=== PATIENT | female | born 1955 | race Caucasian/White ===

== ENCOUNTER → 2017-10-19 08:13 | Outpatient (CLI) | payer OTHER, SELFPAY | PROVIDERS: Visit Provider Nurse Practitioner Women's Health | DX: Z12.31 Encounter for screening mammogram for malignant neoplasm of breast (principal) | CPT/HCPCS: 77063; 77067 ==

== ENCOUNTER → 2017-10-19 19:01 | Outpatient (CLI) | payer OTHER, SELFPAY ==
[2017-10-26 08:12] LABS: HPV APTIMA, High Risk Negative (Negative)
== END ==
PROVIDERS: Visit Provider Nurse Practitioner Women's Health
DX: Z12.4 Encounter for screening for malignant neoplasm of cervix (principal)
CPT/HCPCS: 88175; G0145

== ENCOUNTER → 2018-10-26 | Outpatient (CLI) | payer MEDICARE, SELFPAY ==
--- NOTE | 2018-10-26 07:56 | BI_ITS ---
MAMMOGRAPHY - BILATERAL SCREENING REASON FOR EXAM: Female, 63 years old. Routine annual screening examination. PERTINENT HISTORY: Non-contributory. TECHNIQUE: Digital bilateral breast abram (3D mammographic acquisition) in the CC and MLO projections. 2-D mediolateral oblique (MLO) and craniocaudad (CC) views of both breasts were obtained. CAD: Full Field Digital Mammography with Computer Added Detection was performed. COMPARISON: Comparison is made with prior examination October 19, 2017. FINDINGS: Breast Composition: The breasts are almost entirely fatty. There are no dominant masses or suspicious calcifications. Stable appearance of the small bilateral axillary lymph nodes. No other significant abnormalities are identified. There has been no significant change since the prior study. BI/SCREEN MAMM (CAD) W/ABRAM BILAT IMPRESSION: Stable bilateral screening mammogram. Yearly follow-up mammogram recommended. (A) ASSESSMENT CATEGORY: BIRADS Category 2: Benign. A letter regarding these results will be sent to the patient by the facility within 30 days. Approximately 10% of breast cancers are not detected by mammography. A normal mammogram should not delay biopsy of a clinically suspicious abnormality. [id number] Electronically Signed: Ulises Moore, at 10:25 EDT , Service support ,
== END | disposition home or self-care (01) ==
LOC: OPBI 07:55
PROVIDERS: Referring Provider Nurse Practitioner Women's Health; Visit Provider Nurse Practitioner Women's Health
DX: Z12.31 Encounter for screening mammogram for malignant neoplasm of breast (principal)
CPT/HCPCS: 77063; 77067

== ENCOUNTER → 2020-01-03 08:02 | Outpatient (CLI) | payer MEDICARE, SELFPAY ==
[2018-10-26 08:32] VITALS: BMI 34.5
--- NOTE | 2020-01-03 08:04 | BI_ITS ---
MAMMOGRAPHY - BILATERAL SCREENING REASON FOR EXAM: Female, 64 years old. Routine annual screening examination. PERTINENT HISTORY: Non-contributory. TECHNIQUE: Digital bilateral breast abram (3D mammographic acquisition) in the CC and MLO projections. 2-D mediolateral oblique (MLO) and craniocaudad (CC) views of both breasts were obtained. CAD: Full Field Digital Mammography with Computer Added Detection was performed. COMPARISON: Comparison is made with prior study dated 10/26/2018 and 10/19/2017. FINDINGS: Breast Composition: There are scattered areas of fibroglandular density. There are no dominant masses or suspicious calcifications. No other significant abnormalities are identified. There has been no significant change since the prior study. BI/SCREEN MAMM (CAD) W/ABRAM BILAT IMPRESSION: Stable bilateral screening mammogram. Yearly follow-up mammogram recommended. (A) ASSESSMENT CATEGORY: BIRADS Category 1: Negative. A letter regarding these results will be sent to the patient by the facility within 30 days. Approximately 10% of breast cancers are not detected by mammography. A normal mammogram should not delay biopsy of a clinically suspicious abnormality. [id number] Electronically Signed: Ulises Moore, at 9:48 EST , Service support ,
== END ==
DX: Z12.31 Encounter for screening mammogram for malignant neoplasm of breast (principal)
CPT/HCPCS: 77063; 77067

== ENCOUNTER 2021-02-28 08:36 | Outpatient (CLI) | payer MEDICARE, SELFPAY ==
--- NOTE | 2021-02-28 08:39 | BI_ITS ---
MAMMOGRAPHY - BILATERAL SCREENING REASON FOR EXAM: Female, 65 years old. Routine annual screening examination. PERTINENT HISTORY: Non-contributory. TECHNIQUE: Digital bilateral breast abram (3D mammographic acquisition) in the CC and MLO projections. 2-D mediolateral oblique (MLO) and craniocaudad (CC) views of both breasts were obtained. CAD: Full Field Digital Mammography with Computer Added Detection was performed. COMPARISON: Comparison is made with prior study of 01/03/2020 and 10/26/2018. FINDINGS: Breast Composition: There are scattered areas of fibroglandular density. There are no dominant masses or suspicious calcifications. No other significant abnormalities are identified. There has been no significant change since the prior study. BI/SCRN MAMM (CAD)W/ABRAM BILAT IMPRESSION: Stable bilateral screening mammogram. Yearly follow-up mammogram recommended. (A) ASSESSMENT CATEGORY: BIRADS Category 1: Negative. A letter regarding these results will be sent to the patient by the facility within 30 days. Approximately 10% of breast cancers are not detected by mammography. A normal mammogram should not delay biopsy of a clinically suspicious abnormality. [id number] Electronically Signed: Ulises Moore MD at 9:21 EST , Service support ,
== END 2021-02-28 23:59 | disposition short-term general hospital (02) ==
LOC: OPBI 08:37
DX: Z12.31 Encounter for screening mammogram for malignant neoplasm of breast (principal)
CPT/HCPCS: 77063; 77067

== ENCOUNTER → 2022-03-25 | Outpatient (CLI) | payer MEDICARE, SELFPAY ==
--- NOTE | 2022-03-25 11:34 | BI_ITS ---
MAMMOGRAPHY - BILATERAL SCREENING REASON FOR EXAM: Female, 66 years old. Routine annual screening examination. PERTINENT HISTORY: Sister with breast cancer. TECHNIQUE: Digital bilateral breast abram (3D mammographic acquisition) in the CC and MLO projections. 2-D mediolateral oblique (MLO) and craniocaudad (CC) views of both breasts were obtained. CAD: Full Field Digital Mammography with Computer Added Detection was performed. COMPARISON: Comparison is made with prior examination dated 02/28/2021 and 01/03/2020. FINDINGS: Breast Composition: There are scattered areas of fibroglandular density. There are no dominant masses or suspicious calcifications. No other significant abnormalities are identified. There has been no significant change since the prior study. BI/SCRN MAMM (CAD)W/ABRAM BILAT IMPRESSION: Stable bilateral screening mammogram. Yearly follow-up mammogram recommended. (A) ASSESSMENT CATEGORY: BIRADS Category 1: Negative. A letter regarding these results will be sent to the patient by the facility within 30 days. Approximately 10% of breast cancers are not detected by mammography. A normal mammogram should not delay biopsy of a clinically suspicious abnormality. [id number] Electronically Signed: Ulises Moore MD at 12:29 EST ,
--- NOTE | 2022-03-25 11:36 | BD_ITS ---
STUDY: DUAL ENERGY X-RAY ABSORPTIOMETRY / DXA REASON FOR EXAM: Female, 66 years old. 627.8Menopausal postmenopausalBONE DENSITY REASON FOR EXAM TECHNIQUE: Bone Mineral Density (BMD) measurements of lumbar spine and bilateral hips were obtained. COMPARISON: None. FINDINGS: Lumbar Spine (L1-L4): g/cm2 (0.957) / T-score (-0.8) / Z-score (1.2) Findings are suggestive of normal bone density with a low fracture risk. Left Femur Total: g/cm2 (0.954) / T-score (0.1) / Z-score (1.5) Left Femoral Neck: g/cm2 (0.766) / T-score (-0.7) / Z-score (1.0) Right Femur Total: g/cm2 (0.969) / T-score (0.2) / Z-score (1.6) Right Femoral Neck: g/cm2 (0.811) / T-score (-0.3) / Z-score (1.4) BD/Dexa Bone Density Study IMPRESSION: The patient is considered normal as outlined below according to World [employer] Organization (WHO) criteria with a low fracture risk. Reference Information: The T-score is the number of standard deviations above or below the standard which is normal for young adults at their peak bone mineral density. The World Health Organization (WHO) interprets the T-scores as follows: Above -1 Normal bone density Between -1 and -2.5 Osteopenia Equal to / or below -2.5 Osteoporosis As a practical clinical guideline, osteopenia may be graded as follows: Mild -1 through -1.5 Moderate -1.6 through -2.0 Severe -2.1 through -2.4 The Z-score is the number of standard deviations above or below age-matched controls. A Z-score of less than -1.5 would be considered abnormal. References: 1. NIH Osteoporosis and Related Bone Diseases www osteo.org 2. International Society for Clinical Densitometry www iscd.org 3. National Osteoporosis Foundation www nof.org Electronically Signed: Ulises Moore MD at 9:37 EST ,
== END | disposition home or self-care (01) ==
LOC: OPBD 11:30
DX: Z12.31 Encounter for screening mammogram for malignant neoplasm of breast (principal); Z80.3 Family history of malignant neoplasm of breast; Z78.0 Asymptomatic menopausal state
CPT/HCPCS: 77063; 77067; 77080

== ENCOUNTER 2022-10-30 09:01 | Day surgery (SDC) | payer MEDICARE, SELFPAY ==
[2022-10-30] VITALS (7 sets, daily range): BP systolic 96–164; BP diastolic 64–94; PULSE 53–66; RESP 16; TEMP 36.5–36.8; O2SAT 93–99; BMI 35.6
--- NOTE | 2022-10-30 | GASB_PTH ---
PATIENT: SHYAM MENJIVAR LOC: EN U#:[id number] AGE/SX: 67/F ROOM: RE10/30/[address]: Dr. Abdias Liu MD : 1955 BED: DIS: 10/30/2022 SPEC #: [id number] RECD: 10/30/22 12:52 STATUS: BHARGAV BRADLEY #: [id number] VIANNEY: 10/30/22 00:[address]: Abdias Liu DEPT: SURGICAL PATHOLOGY RECD BY: Elías Gutierrez ENTERED: 10/30/22 12:52 SP TYPE: Gastric Bx OTHR DR: Dr. Sheila Paz DO Tissues: Gastric mucous membrane Procedures: Special Stain Group II Surgery Specimen Level IV Alcian Blue/PAS (control) HEADER OPERATION: EGD, biopsy PRE-OP DIAGNOSIS: Hiatal hernia TISSUE SUBMITTED: Gastroesophageal junction biopsy MICROSCOPIC DIAGNOSIS Gastroesophageal junction, biopsy: Chronic inflammation. Focal changes of reflux. No evidence of goblet cell metaplasia. See comment. AM:usha 11/02/2022 COMMENT Alcian blue/PAS stain with matched control supports the above diagnosis. MICROSCOPIC DESCRIPTION Slides are reviewed. GROSS DESCRIPTION Received in fixative is one container labeled with the patient's name and designated GE junction biopsy. The specimen consists of two irregular fragments of light valadez soft tissue that in aggregate measure 0.5 x 0.3 x 0.1 cm. The specimen is totally submitted in one cassette. / SJ:usha 10/30/2022 TC:3 CPT: 51925, 47059
[2022-10-30] MEDS: Lactated Ringers 1,000 ML 15 ML IV (09:42)
--- NOTE | 2022-10-30 10:12 | HP.PCM_ITS ---
History and Physical Date of Admission: 10/30/22 Intake Vital Signs 10/15/2308:51 Height 5 ft 5 in Weight: 216 lb 6 oz BMI 36.0 BP 146/98 H Blood Pressure Location Rt brachial Position Sitting Respiration 16 Pulse 63 Pulse Source Monitor Temp 97.3 F L Temp Source Tympanic Pulse Oximetry (%) 98 Intake Visit Reasons: HIATAL HERNIA Chief Complaint: HIATAL HERNIA Allergies Lyoenoc-FVH-TbB Reductase Inhibitor Adverse Reaction (Mild, Verified 10/15/22 09:53) Other Medications levothyroxine 100 mcg tablet (Synthroid) 100 mcg PO DAILY 10/19/17 [History Confirmed 10/15/22] metoprolol succinate 50 mg capsule sprinkle, ext. release 24 hr mg PO 10/19/17 [History Confirmed 10/15/22] valsartan 160 mg-hydrochlorothiazide 12.5 mg tablet 1 tab PO DAILY 10/19/17 [History Confirmed 10/15/22] rosuvastatin 5 mg tablet 5 mg PO DAILY 10/26/18 [History Confirmed 10/15/22] [facility] Medical History (Updated 10/15/22 @ 10:[address] Abdias Liu MD) Hyperlipidemia Hypertension Hypothyroidism Surgical History radiation of thyroid S/P tubal ligation Family History Father Throat cancer Heart disease Social History current occupational status: retired Smoking Status: Former smoker how long ago did patient quit smokin years alcohol intake: current alcohol intake frequency: holidays/special occasions only substance use type: does not use caffeine: Yes Type: coffee Number of servings: 1 seatbelt use: always do you feel safe at home: Yes additional social history: [employer] Retired HPI HPI HPI: Patient is a 67-year-old female with epigastric pain. She reports she has acid reflux and has been on PPI for years. She says that if she eats large meal she has extreme pain in the epigastric region that happens about 20 minutes after eating. If she small meal she is okay. She also reports that if she bends over she has nausea and pain. She has a known hiatal hernia. ROS General General: Yes weight change and fatigue; No appetite, colon cancer, breast cancer or weakness HEENT HEENT: No difficulty swallowing, eye injury, eye surgery, swollen glands or hoarseness Endo Endocrine: No thyroid disease, diabetes mellitus, thyroid cancer, Hair loss, heat intolerance or cold intolerance Skin Skin: Yes rash; No changing moles Breast Breast: No left breast lump, right breast lump, nipple discharge, breast pain, abnormal mammogram, abnormal US or breast enlargement Musc Musculoskeletal: Yes back problems and arthritis; No rheumatoid arthritis, gout or joint pain Cardio Cardiovascular: Yes high blood pressure; No murmur, pacemaker, heart disease, atrial fibrillation, heart attack, heart stent, palpitations, shortness of breat with exertion or chest pain Psych Psychiatric: No depression, anxiety or hearing voices Resp Respiratory: Yes shortness of breath, No sleep apnea, No cough, No COPD, No asthma, No emphysema and No wheezing Gastro Gastrointestinal: Yes abdominal pain, Yes nausea or vomiting, No diarrhea, No constipation, No blood in stool, Yes acid reflux, Yes hemorrhoids, No ulcers, No gallbladder problem and No black,tarry stools Yan Hematologic: No blood thinners, No blood disorders, No bleeding, No anemia and No blood clots Neuro Neurologic: No system reviewed and no additional complaints, except as documented, No as per HPI, No abnormal gait, No abnormal hearing, No abnormal movements, No abnormal speech, No behavioral changes, No burning sensations, No confusion, No convulsions, No disequilibrium, No dizziness, No localized weakness, No frequent falls, No headache(s), No lack of coordination, No loss of vision, No memory loss, No numbness, No other visual disturbances, No radicular pain, No restless legs, No sensory deficit, No syncope, No tingling, No tremor(s), No weakness and No other Exam Const General: cooperative Orientation: alert and oriented x3 HENMT Head: normal to inspection Neck Neck: normal visual inspection and full ROM Chest Chest palpation & inspection: normal inspection of the chest Resp Effort & Inspection: normal respiratory effort Auscultation: clear to auscultation bilaterally Cardio Rate: regular rate Rhythm: regular rhythm GI Inspection: non-distended Palpation: soft and nontender Skin General: no rashes or lesions noted Neuro General: patient alert and patient oriented x3 Extrem General: full ROM Psych Appearance: grossly normal Mental Status: mental status grossly normal Assessment and Plan Assessment and Plan (1) Hiatal hernia: Status: Acute Plan: Patient has a known hiatal hernia and she has been having epigastric pain and nausea. I discussed hiatal hernia repair with her and at this time she would l roma to avoid surgery but she is willing to consent for EGD. I explained endoscopy in detail to the patient. I explained the risks including but not limited to stroke or heart attack with anesthesia, perforation of the GI tract, bleeding, infection. I explained that any of these could necessitate further emergency surgery. The patient understands and all questions were answered sufficiently. The patient wishes to proceed with procedure. I will evaluate her hiatal hernia and if she decides to have hiatal hernia repair in the future I can order manometry and discuss it with her again. Abdias Liu MD Pager: [facility] [address] [place] [address], [address] [place] [address] Office: I have examined the patient and the H&P has been reviewed. There are no clinical changes since date of exam.
--- NOTE | 2022-10-30 10:29 | OP.CCLET_ITS ---
10/30/2022 Sheila Paz Re : Upper GI endoscopy procedure for Azeem Carrillo Dear Brandi This procedure was performed on Sunday, October 30, 2022. My impressions and recommendations are as follows: Impressions : - Reflux esophagitis with no bleeding. Biopsied. - Normal stomach. - Normal examined duodenum. Recommendations : - Discharge patient to home. - Resume previous diet. - Continue present medications. - Await pathology results. My findings are described in the full procedure note, which is enclosed. If I can be of further assistance, please feel free to contact me at Doctor phone number(s): , Work: . Sincerely, Abdias Liu MD 10/30/2022 10:29:08 AM This report has been signed electronically.
--- NOTE | 2022-10-30 10:29 | OP.EGD_ITS ---
Patient Name: Azeem Carrillo Procedure Date: 10/30/2022 10:18 AM Date of : 1955 Age: 67 Procedure: Upper GI endoscopy Indications: Esophageal reflux Providers: Abdias Liu MD Referring MD: Sheila Paz Medicines: Monitored Anesthesia Care Patient Profile: This is a 67 year old female. Refer to note in patient chart for documentation of history and physical. Complications: No immediate complications. Estimated blood loss: Minimal. Procedure: Pre-Anesthesia Assessment: - Prior to the procedure, a History and Physical was performed, and patient medications and allergies were reviewed. The patient's tolerance of previous anesthesia was also reviewed. The risks and benefits of the procedure and the sedation options and risks were discussed with the patient. All questions were answered, and informed consent was obtained. Prior Anticoagulants: The patient has taken no anticoagulant or antiplatelet agents. After reviewing the risks and benefits, the patient was deemed in satisfactory condition to undergo the procedure. After obtaining informed consent, the endoscope was passed under direct vision. Throughout the procedure, the patient's blood pressure, pulse, and oxygen saturations were monitored continuously. The gastroscope was introduced through the mouth, and advanced to the third part of duodenum. The upper GI endoscopy was accomplished without difficulty. The patient tolerated the procedure well. Scope In: 10:22:28 AM Scope Out: 10:24:54 AM Total Procedure Duration Time 0 hours 2 minutes 26 seconds Findings: Esophagitis with no bleeding was found at the gastroesophageal junction. Biopsies were taken with a cold forceps for histology. The stomach was normal. There was bile reflux. The examined duodenum was normal. Impression: - Reflux esophagitis with no bleeding. Biopsied. - Normal stomach. - Normal examined duodenum. Recommendation: - Discharge patient to home. - Resume previous diet. - Continue present medications. - Await pathology results. Procedure Code(s): --- Professional --- 91871, Esophagogastroduodenoscopy, flexible, transoral; with biopsy, single or multiple Diagnosis Code(s): --- Professional --- K21.00, Gastro-esophageal reflux disease with esophagitis, without bleeding CPT copyright 2021 [employer]. All rights reserved. The codes documented in this report are preliminary and upon orthopaedic surgeon review may be revised to meet current compliance requirements. Abdias Liu MD 10/30/2022 10:29:08 AM This report has been signed electronically. Number of Addenda: 0 Note Initiated On: 10/30/2022 10:18 AM
== END 2022-10-30 11:15 | disposition home or self-care (01) ==
LOC: EN 09:01 → AC 09:03
PROVIDERS: Visit Provider Surgery
PROC: 0DJ08ZZ Inspection of Upper Intestinal Tract, Via Natural or Artificial Opening Endoscopic (ICD-10-PCS; CPT 43235; principal; 2022-10-30 10:25)
DX: K21.00 Gastro-esophageal reflux disease with esophagitis, without bleeding (principal); K44.9 Diaphragmatic hernia without obstruction or gangrene; I10 Essential (primary) hypertension; E03.9 Hypothyroidism, unspecified; E78.00 Pure hypercholesterolemia, unspecified; Z79.899 Other long term (current) drug therapy; Z87.891 Personal history of nicotine dependence
CPT/HCPCS: 43239; 88305; 88313; J7120; J2405

== ENCOUNTER → 2023-06-10 | Outpatient (CLI) | payer MEDICARE, SELFPAY ==
--- NOTE | 2023-06-10 08:21 | BI_ITS ---
MAMMOGRAPHY - BILATERAL SCREENING REASON FOR EXAM: Female, 67 years old. Routine annual screening examination. PERTINENT HISTORY: Sister with breast cancer. TECHNIQUE: Digital bilateral breast abram (3D mammographic acquisition) in the CC and MLO projections. 2-D mediolateral oblique (MLO) and craniocaudad (CC) views of both breasts were obtained. CAD: Full Field Digital Mammography with Computer Added Detection was performed. COMPARISON: Comparison is made with prior study dated March 25, 2022 and February 28, 2021. FINDINGS: Breast Composition: The breasts are almost entirely fatty. There are no dominant masses or suspicious calcifications. Stable fat-containing right axillary lymph node. No other significant abnormalities are identified. There has been no significant change since the prior study. BI/SCRN MAMM (CAD)W/ABRAM BILAT IMPRESSION: Stable bilateral screening mammogram. Yearly follow-up mammogram recommended. (A) ASSESSMENT CATEGORY: BIRADS Category 2: Benign. A letter regarding these results will be sent to the patient by the facility within 30 days. Approximately 10% of breast cancers are not detected by mammography. A normal mammogram should not delay biopsy of a clinically suspicious abnormality. [id number] Electronically Signed: Ulises Moore MD at 9:16 EDT ,
== END | disposition home or self-care (01) ==
LOC: OPBI 08:20
DX: Z12.31 Encounter for screening mammogram for malignant neoplasm of breast (principal)
CPT/HCPCS: 77063; 77067

== ENCOUNTER → 2024-06-28 | Outpatient (CLI) | payer MEDICARE, SELFPAY ==
--- NOTE | 2024-06-28 08:21 | BI_ITS ---
EXAM: SCRN MAMM (CAD)W/ABRAM BILAT 06/28/2024 CLINICAL HISTORY: F, Age 68 y/o , SCREENING TECHNIQUE: Bilateral screening digital breast tomosynthesis with 2D and 3D images. Computer aided detection. COMPARISON: Prior exam(s) dated 06/10/2023, 03/25/2022, 02/28/2021, 01/03/2020. FINDINGS: TISSUE DENSITY: The breast tissue is composed of scattered area of fibroglandular density. Bilateral Breast Mammographic Findings: No significant masses, calcifications or other abnormalities are identified. BI/SCRN MAMM (CAD)W/ABRAM BILAT IMPRESSION: Right Breast: BIRADS 1 NEGATIVE. Left Breast: BIRADS 1 NEGATIVE. OVERALL FINAL ASSESSMENT: BIRADS 1 NEGATIVE. RECOMMENDATION: Routine annual follow-up in 1 Year A letter with findings and recommendations will be mailed to the patient. Reading Location: [id number]
== END | disposition home or self-care (01) ==
DX: Z12.31 Encounter for screening mammogram for malignant neoplasm of breast (principal)
CPT/HCPCS: 77063; 77067

== ENCOUNTER 2025-01-23 05:40 | Day surgery (SDC) | payer MEDICARE, SELFPAY ==
--- NOTE | 2025-01-19 14:43 | PAT.ANE_ITS ---
Pre-Assessment Diagnosis/Proposed Procedure Planned Operative Procedure(s): EGD Anesthesia History Anesthesia History - vice president safety: Anesthesia History - vice president safety Hx Hospitalization No 01/17/25 08:48 Any Problems With Anesthesia No 01/17/25 08:48 Cholinesterase deficiency No 01/17/25 08:48 You/Your Family Experience No 01/17/25 08:48 fever (hyperthermia) with Relationship Recent Exposure to Contagious No 10/30/22 09:37 Disease Does patient have nerve No 01/17/25 08:48 stimulator Patient instructed to have device shut off --Does patient have Pacemaker or ICD? When Was Last Pacemaker Check QUESTION #4 FULL TEXT: You/Your Family Experience fever (hyperthermia) with Anesthesia Last Oral Intake Last Oral intake: Last Oral Intake NPO since Meds taken in AM with sips of water? Meds patient instructed to take am of surgery PONV PONV - vice president safety: PONV - vice president safety Female Yes 01/17/25 08:48 HX of Motion Sickness No 01/17/25 08:48 HX of N/V After Surgery No 01/17/25 08:48 Non-Smoker Yes 01/17/25 08:48 Duration of Surgery greater No 01/17/25 08:48 than 60 minutes Number of Risk Factors 2 01/17/25 08:48 PONV Score Moderate Risk 01/17/25 08:48 Height & Weight Height & Weight: Anesthesia: Height & Weight Height 5 ft 5 in 12/25/24 14:08 Respiratory Assessment Respiratory Assessment - vice president safety: Respiratory Tract Infection Hx - vice president safety Hx Respiratory Tract Infection No 01/17/25 08:48 STOP Sleep Apnea STOP Sleep Apnea - vice president safety: STOP Sleep Apnea - vice president safety Hx Hypertension Yes: CONTROLLED WITH MEDS, 01/17/25 08:48 WHITE COAT SYNDROM Hx Sleep Apnea No 01/17/25 08:48 CPAP BIPAP Do you snore loudly (louder Yes 01/17/25 08:48 than talking or can be heard Do you often feel tired/ No 01/17/25 08:48 fatigued/ sleepy during daytime? Has anyone observed you stop No 01/17/25 08:48 breathing during sleep? STOP Results Positive 01/17/25 08:48 QUESTION #5 FULL TEXT : Do you snore loudly (louder than talking or can be heard through closed doors)? 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 Specify any problems Hx of Preganancy in last 3 No 01/17/25 08:48 Months Nurse Filling Out Transfusion VCHRISTIN 01/17/25 08:48 & Questions: Date: 01/17/25 01/17/25 08:48 Time: 08:49 01/17/25 08:48 Patient unable to answer at this time (ie. confused, unrespo /Reproduction History /Reproductive History - vice president safety: /Reproductive Hx- vice president safety Hx Now No 01/17/25 08:48 Gestational Age (in weeks): EDC: Hx Hx Para Hx Section SAB No 01/17/25 08:48 Does the father of the baby or his family experience fever w Father of the baby Malignant Hypertension history comment [facility] Medical History (Updated 01/17/25 @ 08:47 by Racquel Hurtado) Gastric reflux Sleep apnea Vision problems Thyroid disease Back problem Seasonal allergies Wears contact lenses Post-menopausal Rash High cholesterol Back pain History of hiatal hernia Heartburn Former smoker History of stress test Hypothyroidism Hyperlipidemia Hypertension Home Medications Medication Instructions Recorded Last Taken Type metoprolol succinate 50 mg capsule 50 mg PO DAILY 09/2310/30/22 History sprinkle, ext. release 24 hr rosuvastatin 5 mg tablet 5 mg PO DAILY 10/26/1810/30 History pantoprazole 20 mg tablet,delayed 20 mg PO DAILY 10/2810/30/22 History release valsartan 160 1 tab PO DAILY 10/28/22 09/0 10/14 History mg-hydrochlorothiazide 25 mg tablet levothyroxine 88 mcg tablet 88 mcg PO DAILY 01/17/25 U nknown History Allergy/AdvReac Type Severity Reaction Status Date / Time [id number] Reductase AdvReac Mild Other Verified 01/17/25 08:41 Inhibitor Family History Father Throat cancer Heart disease Angina pectoris Depression Myocardial infarction, Onset Age: 61 Mother Arthritis Hypertension Sister Breast cancer Depression Brother Asthma Surgical History (Updated 01/17/25 @ 08:47 by Racquel Hurtado) History of esophagogastroduodenoscopy (EGD) History of cardiac catheterization H/O foot surgery radiation of thyroid S/P tubal ligation Social History current occupational status: retired Smoking Status: Former smoker how long ago did patient quit smokin years alcohol intake: current alcohol intake frequency: other details: 1 glass a week substance use type: does not use caffeine: Yes Type: coffee Number of servings: 1 what type of physical activity do you participate in: none seatbelt use: always do you feel safe at home: Yes additional social history: [employer] Retired Audit: Pertinent Findings Pertinent Findings EKG Perinent findings: 10/12/2016. Sinus rhythm 64 bpm. Stress test pertinent findings: 10/16/2020. Lexiscan nuclear stress test. Negative. EF 62%. Heart catheterization pertinent findings: 12/09/2020. Mild coronary artery disease. Normal systolic function. Medical treatment only. Recommendation Anesthesia Recommendation Anesthesia recommendation: OPTIMIZED for anesthesia
[2025-01-23] VITALS (9 sets, daily range): BP systolic 98–158; BP diastolic 63–70; PULSE 57–62; RESP 14–16; TEMP 36.1–36.2; O2SAT 92–96; BMI 35.5
[2025-01-23] MEDS: Lactated Ringers 1,000 ML 15 ML IV (06:31)
--- NOTE | 2025-01-23 06:44 | HP.PCM_ITS ---
HPI - General General Date of Admission: 01/23/25 Date of Service: 01/23/25 Chief Complaint: Mancini's esophagus and dysphagia HPI Narrative SHYAM MENJIVAR, is a 69 F who presents [ Chief Complaint: HIATAL HERNIA Details: EGD 10/30/2022 ([facility]) - negative for Mancini's - Reflux esophagitis with no bleeding. Biopsied. - Normal stomach. - Normal examined duodenum. COLON ([facility]) - choking on stuff, solids and liquids for the past 9-12 months ago - pantoprazole 40mg daily for the past 3-4 years, pepto and rolaids for breakthrough symptoms infrequently - coughing a lot with swallowing - Heimlich this past May - piece of meat - denies any N/V - denies any weight loss - she is non-smoker - social alcohol use - occasional NSAIDS, 1-2x a week - Swallow testing done in radiology - this past July [facility] Medical History Gastric reflux Sleep apnea Vision problems Thyroid disease Back problem Seasonal allergies Wears contact lenses Post-menopausal Rash High cholesterol Back pain History of hiatal hernia Heartburn Former smoker History of stress test Hypothyroidism Hyperlipidemia Hypertension Home Medications Medication Instructions Recorded Last Taken Type metoprolol succinate 50 mg capsule 50 mg PO DAILY 09/2301/23/25 05:30 History sprinkle, ext. release 24 hr rosuvastatin 5 mg tablet 5 mg PO DAILY 10/26/1810/30 History pantoprazole 20 mg tablet,delayed 20 mg PO DAILY 10/2810/30/22 History release valsartan 160 1 tab PO DAILY 10/28/22 0910/14 History mg-hydrochlorothiazide 25 mg tablet levothyroxine 88 mcg tablet 88 mcg PO DAILY 01/17/25 1 03/26/24 04:30 History Allergy/AdvReac Type Severity Reaction Status Date / Time [id number]-XmH Reductase AdvReac Mild Other Verified 01/23/25 06:19 Inhibitor Family History Father Throat cancer Heart disease Angina pectoris Depression Myocardial infarction, Onset Age: 61 Mother Arthritis Hypertension Sister Breast cancer Depression Brother Asthma Surgical History History of esophagogastroduodenoscopy (EGD) History of cardiac catheterization H/O foot surgery radiation of thyroid S/P tubal ligation Social History current occupational status: retired Smoking Status: Former smoker how long ago did patient quit smokin years alcohol intake: current alcohol intake frequency: other details: 1 glass a week substance use type: does not use caffeine: Yes Type: coffee Number of servings: 1 what type of physical activity do you participate in: none seatbelt use: always do you feel safe at home: Yes additional social history: [employer] Retired [employer] Constitutional Constitutional: Denies fatigue, fever(s), poor appetite, weight gain or weight loss Gastrointestinal Gastrointestinal: Denies belching, bloating, change in bowel habits, change in stool character, chewing difficulty, coffee ground emesis, constipation, cramping, diarrhea, dyspepsia, dysphagia, early satiety, excessive flatus, fecal incontinence, heartburn, hematemesis, hematochezia, hemorrhoids, loose stools, melena, nausea, odynophagia, rectal bleeding, tenesmus, vomiting or weight changes Vital Signs Vital Signs Vital Signs: 01/23/25 06:20 01/23/25 06:20 01/23/25 06:23 Temperature 97.2 F L Temperature Source Temporal Pulse Rate 58 L Respiratory Rate 14 Respiratory Pattern Normal Blood Pressure 158/70 H Blood Pressure Mean 99 Blood Pressure Source Monitor Blood Pressure Position Sitting Blood Pressure Location Left Arm Baseline BP 158/70 Pulse Ox 96 Oxygen Delivery Method Room Air Weight Weight: 207 lb 3.752 oz Body Mass Index (BMI) 35.5 Physical Exam Const alert, oriented x3, no apparent distress and healthy appearing General Appearance: cooperative GI normal to inspection, nondistended, normoactive bowel sounds, soft to palpation, non-tender and non-distended Percussion: normal to percussion Rectal Exam: deferred Assessment & Plan Assessment/Plan (1) GERD (gastroesophageal reflux disease): (2) Hiatal hernia: (3) Dysphagia: PLAN: Assessment and Plan Assessment and Plan (1) Dysphagia: Qualifiers: Dysphagia type: esophageal phase Qualified Code(s): R13.19 - Other dysphagia Plan 69-year-old female with a history of gastroesophageal reflux disease (GERD) presenting with dysphagia. The patient describes difficulties swallowing both solids and liquids with a choking sensation and significant coughing, linked to an incidence of food being lodged in the esophagus. Recent diagnostics include swallow testing (July 2024) showing esophageal obstruction per patient and EGD (2022) revealing reflux esophagitis but no Mancini's esophagus. The dysphagia may be attributed to esophageal stricture or structural issues related to GERD or possibly silent reflux. A familial predisposition is noted, which may suggest an esophageal motility disorder or anatomical variation inherited in nature. Obtain results of previous MBS/Esophagram performed at [place] Patient Instructions: EGD ]
--- NOTE | 2025-01-23 07:00 | EGD_PTH ---
PATIENT: SHYAM MENJIVAR LOC: EN U#:[id number] AGE/SX: 69/F ROOM: RE01/23/[address]: Dr. Chau Beard DO : 1955 BED: DIS: 01/23/2025 SPEC #: [id number] RECD: 01/23/25 08:23 STATUS: BHARGAV BRADLEY #: [id number] VIANNEY: 01/23/25 07:[address]: Chau Beard DEPT: SURGICAL PATHOLOGY RECD BY: Kevin Flores ENTERED: 01/23/25 10:47 SP TYPE: EGD BIOPSY APRIL DR: Dr. Sheila Paz DO Tissues: A - Esophagus, NOS B - Esophagus, NOS Procedures: Surgery Specimen Level IV HEADER OPERATION: EGD, biopsy, dilation PRE-OP DIAGNOSIS: GERD, hiatal hernia, dysphagia TISSUE SUBMITTED: A- Distal esophagus biopsy, B- Random esophagus biopsy MICROSCOPIC DIAGNOSIS A. Esophagus, distal, biopsy: - Cardio-oxyntic gastric mucosa with features of reactive gastropathy. - Negative for goblet cell metaplasia, negative for dysplasia. - No squamous mucosa observed. B. Esophagus, random, biopsy: - Benign squamous mucosa negative for eosinophils. MICROSCOPIC DESCRIPTION Slides are reviewed. GROSS DESCRIPTION A. Received in fixative is one container labeled with the patient's name and designated "Distal esophagus biopsy." The specimen consists of two irregular fragments of valadez tissue that measure 0.4 and 0.6 cm. The specimen is totally submitted in one cassette. B. Received in fixative is one container labeled with the patient's name and designated "Random esophagus biopsy." The specimen consists of two irregular fragments of valadez tissue, each measuring 0.5 cm. The specimen is totally submitted in one cassette. ID 01/23/2025 CPT:[id number]
--- NOTE | 2025-01-23 07:07 | PCM.PRE.AN2 ---
ASA Classification* ASA Classification ASA Classification: 2 Assessment & Plan Anesthesia* Anesthesia Assessment Anesthesia Assessment: Discussed sedation and/or anesthesia options, risks, benefits, and alternatives with patient/parents/legal guardian/POA. Questions invited. The patient/parents/legal guardian/POA seems to understand and agrees to proceed with anesthesia plan. Reviewed the physical assessment, medical history, allergy history and patient home medications list prior to surgery/procedure/anesthetic and documented any changes. Performed airway and anesthesia risk assessments. Anesthesia Type Anesthesia Type: MAC History Source History Obtained from:: Patient and Chart Anesthesia Focused Assessment* Temperature: 97.2 F Pulse Rate: 58 Blood Pressure: 158/70 Respiratory Rate: 14 Pulse Ox: 96 Oxygen Delivery Method: Room Air Airway Assessment Mouth opens: >3 cm Mallampati Score: III Teeth Condition: Caps/Crowns (Patient has couple crowns. 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 When Was Last Pacemaker Check QUESTION #4 FULL TEXT: You/Your Family Experience fever (hyperthermia) with Anesthesia Last Oral Intake Last Oral intake: Last Oral Intake NPO since 21:00 01/23/25 06:20 Meds taken in AM with sips of Yes 01/23/25 06:20 water? 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 Female Yes 01/17/25 08:48 HX of Motion Sickness No 01/17/25 08:48 HX of N/V After Surgery No 01/17/25 08:48 Non-Smoker Yes 01/17/25 08:48 Duration of Surgery greater No 01/17/25 08:48 than 60 minutes Number of Risk Factors 2 01/17/25 08:48 PONV Score Moderate Risk 01/17/25 08:48 Height & Weight Height & Weight: Anesthesia: Height & Weight Height 5 ft 4 in 01/23/25 06:20 Weight: 94 kg 01/23/25 06:20 Body Mass Index (BMI) 35.5 01/23/25 06:20 Respiratory Assessment Respiratory Assessment - accounting machine operator: Respiratory Tract Infection Hx - accounting machine operator Hx Respiratory Tract Infection No 01/17/25 08:48 STOP Sleep Apnea STOP Sleep Apnea - accounting machine operator: STOP Sleep Apnea - accounting machine operator Hx Hypertension Yes: CONTROLLED WITH MEDS, 01/17/25 08:48 WHITE COAT SYNDROM Hx Sleep Apnea No 01/17/25 08:48 CPAP BIPAP Do you snore loudly (louder Yes 01/17/25 08:48 than talking or can be heard Do you often feel tired/ No 01/17/25 08:48 fatigued/ sleepy during daytime? Has anyone observed you stop No 01/17/25 08:48 breathing during sleep? STOP Results Positive 01/17/25 08:48 QUESTION #5 FULL TEXT : Do you snore loudly (louder than talking or can be heard through closed doors)? 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 Specify any problems Hx of Preganancy in last 3 No 01/17/25 08:48 Months Nurse Filling Out Transfusion VCHRISTIN 01/17/25 08:48 & Questions: Date: 01/17/25 01/17/25 08:48 Time: 08:49 01/17/25 08:48 Patient unable to answer at this time (ie. confused, unrespo /Reproduction History /Reproductive History - accounting machine operator: /Reproductive Hx- accounting machine operator Hx Now No 01/17/25 08:48 Gestational Age (in weeks): EDC: Hx Hx Para Hx Section SAB No 01/17/25 08:48 Does the father of the baby or his family experience fever w Father of the baby Malignant Hypertension history comment Active Medications Active Medications: Current Medications Generic Name Dose Route Start Last Admin Trade Name Freq PRN Reason Stop Dose Admin Lactated Ringer's 1,000 mls @ 15 mls/hr 01/23/25 06:15 01/23/25 06:31 IV 15 mls/hr .Q48H LIUDMILA Administration PFSH Medical History Gastric reflux Sleep apnea Vision problems Thyroid disease Back problem Seasonal allergies Wears contact lenses Post-menopausal Rash High cholesterol Back pain History of hiatal hernia Heartburn Former smoker History of stress test Hypothyroidism Hyperlipidemia Hypertension Home Medications Medication Instructions Recorded Last Taken Type metoprolol succinate 50 mg capsule 50 mg PO DAILY 10/19/17 01/23/25 05:30 History sprinkle, ext. release 24 hr rosuvastatin 5 mg tablet 5 mg PO DAILY 10/26/18 10/30/22 History pantoprazole 20 mg tablet,delayed 20 mg PO DAILY 10/28/22 10/30/22 History release valsartan 160 1 tab PO DAILY 10/28/22 10/30/22 History mg-hydrochlorothiazide 25 mg tablet levothyroxine 88 mcg tablet 88 mcg PO DAILY 01/17/25 01/23/25 04:30 History Allergy/AdvReac Type Severity Reaction Status Date / Time [id number]-AIV-[id number] Reductase AdvReac Mild Other Verified 01/23/25 06:19 Inhibitor Family History Father Throat cancer Heart disease Angina pectoris Depression Myocardial infarction, Onset Age: 61 Mother Arthritis Hypertension Sister Breast cancer Depression Brother Asthma Surgical History History of esophagogastroduodenoscopy (EGD) History of cardiac catheterization H/O foot surgery radiation of thyroid S/P tubal ligation Social History current occupational status: retired Smoking Status: Former smoker how long ago did patient quit smokin years alcohol intake: current alcohol intake frequency: other details: 1 glass a week substance use type: does not use caffeine: Yes Type: coffee Number of servings: 1 what type of physical activity do you participate in: none seatbelt use: always do you feel safe at home: Yes additional social history: [employer] Retired Review of Systems (Anesthesia) ROS Narrative System reviewed and no additional complaints, except as documented.
--- NOTE | 2025-01-23 07:41 | OP.EGD_ITS ---
Patient Name: Azeem Carrillo Procedure Date: 01/23/2025 7:20 AM Date of : 1955 Age: 69 Procedure: Upper GI endoscopy Indications: Dysphagia, Failure to respond to medical treatment Providers: Chau Beard DO Referring MD: Sheila Paz Medicines: Monitored Anesthesia Care Patient Profile: This is a 69 year old female. Refer to note in patient chart for documentation of history and physical. Patient has symptoms of dysphagia with both liquids and solids. Complications: No immediate complications. Procedure: Pre-Anesthesia Assessment: - Prior to the procedure, a History and Physical was performed, and patient medications and allergies were reviewed. The patient is competent. The risks and benefits of the procedure and the sedation options and risks were discussed with the patient. All questions were answered and informed consent was obtained. Patient identification and proposed procedure were verified by the physician in the pre-procedure area. Mental Status Examination: alert and oriented. Airway Examination: normal oropharyngeal airway and neck mobility. Respiratory Examination: clear to auscultation. CV Examination: normal. Prophylactic Antibiotics: The patient does not require prophylactic antibiotics. Prior Anticoagulants: The patient has taken no anticoagulant or antiplatelet agents. ASA Grade Assessment: II - A patient with mild systemic disease. After reviewing the risks and benefits, the patient was deemed in satisfactory condition to undergo the procedure. The anesthesia plan was to use monitored anesthesia care (MAC). Immediately prior to administration of medications, the patient was re-assessed for adequacy to receive sedatives. The heart rate, respiratory rate, oxygen saturations, blood pressure, adequacy of pulmonary ventilation, and response to care were monitored throughout the procedure. The physical status of the patient was re-assessed after the procedure. After obtaining informed consent, the endoscope was passed under direct vision. Throughout the procedure, the patient's blood pressure, pulse, and oxygen saturations were monitored continuously. The Endoscope was introduced through the mouth, and advanced to the second part of duodenum. The upper GI endoscopy was accomplished without difficulty. The patient tolerated the procedure well. Scope In: 7:27:30 AM Scope Out: 7:33:27 AM Total Procedure Duration Time 0 hours 5 minutes 57 seconds Findings: Abnormal motility was noted in the esophagus. The cricopharyngeus was abnormal. There are extra peristaltic waves in the esophageal body. The distal esophagus/lower esophageal sphincter is spastic, but gives up passage to the endoscope. Tertiary peristaltic waves are noted. Biopsies were taken with a cold forceps for histology. Verification of patient identification for the specimen was done. Estimated blood loss was minimal. A guidewire was placed and the scope was withdrawn. Dilation was performed with a Savary dilator with no resistance at 60 Fr. The dilation site was examined and showed mild mucosal disruption and moderate improvement in luminal narrowing. Estimated blood loss was minimal. The Z-line was irregular and was found 38 cm from the incisors. Biopsies were taken with a cold forceps for histology. Verification of patient identification for the specimen was done. Estimated blood loss was minimal. Multiple hyperplastic polyps with no bleeding and no stigmata of recent bleeding were found in the entire examined stomach. No gross lesions were noted in the entire examined duodenum. Impression: - Abnormal esophageal motility. - Z-line irregular, 38 cm from the incisors. Biopsied. - Multiple gastric polyps. - No gross lesions in the entire examined duodenum. Recommendation: - Discharge patient to home. - Resume previous diet. - Continue present medications. - Await pathology results. Procedure Code(s): --- Professional --- 65406, Esophagogastroduodenoscopy, flexible, transoral; with insertion of guide wire followed by passage of dilator(s) through esophagus over guide wire 71657, 59,51, Esophagogastroduodenoscopy, flexible, transoral; with biopsy, single or multiple CPT copyright 2021 [employer] [place] [employer] [employer]. All rights reserved. The codes documented in this report are preliminary and upon instructional systems design consultant review may be revised to meet current compliance requirements. Chau Beard DO 01/23/2025 7:40:32 AM This report has been signed electronically. Number of Addenda: 0 Note Initiated On: 01/23/2025 7:20 AM
--- NOTE | 2025-01-23 07:41 | OP.PROVAT_ITS ---
01/23/2025 Sheila Paz Re : Upper GI endoscopy procedure for Azeem Carrillo Dear Brandi This procedure was performed on Thursday, January 23, 2025. My impressions and recommendations are as follows: Impressions : - Abnormal esophageal motility. - Z-line irregular, 38 cm from the incisors. Biopsied. - Multiple gastric polyps. - No gross lesions in the entire examined duodenum. Recommendations : - Discharge patient to home. - Resume previous diet. - Continue present medications. - Await pathology results. My findings are described in the full procedure note, which is enclosed. If I can be of further assistance, please feel free to contact me at . Sincerely, Chau Beard, 01/23/2025 7:40:32 AM This report has been signed electronically.
--- NOTE | 2025-01-23 07:42 | PCM.POST.ANE ---
Anesthesia: Postop Eval I Current Vital Signs Temperature: 97 F Pulse Rate: 62 Blood Pressure: 127/70 Respiratory Rate: 16 Pulse Ox: 95 Oxygen Delivery Method: Room Air Assessment Airway patent: Yes Spontaneous unlabored respirations: Yes Mental status: Asleep nausea: No Vomiting: No Anesthesia Complication: No Fluid Hydration Crystalloid volume administer (ml): 700 Total IV fluid infused: 700 Progress Note Anesthesia document: Postop Eval 1 completed: Yes
--- NOTE | 2025-01-23 10:41 | PCM.POSTANE2 ---
Anesthesia Postop Eval I Sum Postop Eval Completion status Anesthesia document: Postop Eval 1 completed: Yes Anesthesia Postop Eval I Summary Anesthesia Postop Eval I Summary: Anesthesia Postop Eval I: Assessment Summary Airway patent Yes 01/23/25 07:43 [email or web address] Spontaneous unlabored Yes 01/23/25 07:43 [email or web address] respirations Mental status Asleep 01/23/25 07:43 [email or web address] nausea No 01/23/25 07:43 [email or web address] Vomiting No 01/23/25 07:43 [email or web address] Anesthesia Postop Eval I: Fluid Summary Crystalloid volume administer 700 01/23/25 07:43 [email or web address] (ml) Colloids volume administered ( ml) Blood Product volume administered (ml) Total IV fluid infused 700 01/23/25 07:43 [email or web address] Anesthesia Postop Eval I: Summary Notes Anesthesia Complication No 01/23/25 07:43 [email or web address] Anesthesia Complication Comment: Post-operative progress note Anesthesia: Postop Eval II Evaluation Mental status: Awake and Calm Pain Level: 0 nausea: No Vomiting: No Complications Anesthesia Complication: No
== END 2025-01-23 08:20 | disposition home or self-care (01) ==
LOC: EN 05:41 → AC 05:43
PROVIDERS: Visit Provider Internal Medicine Gastroenterology
PROC: 0DJ08ZZ Inspection of Upper Intestinal Tract, Via Natural or Artificial Opening Endoscopic (ICD-10-PCS; CPT 43235; principal; 2025-01-23 06:55)
DX: K22.70 Barrett's esophagus without dysplasia (principal); K44.9 Diaphragmatic hernia without obstruction or gangrene; K31.7 Polyp of stomach and duodenum; R13.10 Dysphagia, unspecified; E78.00 Pure hypercholesterolemia, unspecified; Z87.891 Personal history of nicotine dependence; K21.9 Gastro-esophageal reflux disease without esophagitis; I10 Essential (primary) hypertension; Z79.899 Other long term (current) drug therapy; E03.9 Hypothyroidism, unspecified; Z79.890 Hormone replacement therapy; Z98.51 Tubal ligation status; K30 Functional dyspepsia; K22.89 Other specified disease of esophagus; K31.89 Other diseases of stomach and duodenum
CPT/HCPCS: 43248; 43239; 88305; A4216; C1769; J2405